=== PATIENT | male | born 1985 | race Caucasian/White ===

== ENCOUNTER 2019-11-29 16:07 | Emergency (ER) | payer OTHER ==
--- OUTSIDE RECORDS SUMMARY | 2019-11-29 16:09 | XMS REPORT | Continuity of Care Document ---
:1985 Author Organization [facility] t Address [address] [place] [address] [place] [id number] Care Team Providers Name Role Phone Doctor Unassigned, Name Attending Clinician Unavailable Chauncey Givens MD Attending Clinician Problems This patient has no known problems. Allergies, Adverse Reactions, Alerts This patient has no known allergies or adverse reactions. Medications This patient has no known medications. Procedures This patient has no known procedures. Encounters Start End Encounter Admission Attending Care Care Encounter Source Date/Time Date/Time Type Type Clinicians Facility Department ID 2019-10-15 2019-10-15 Orders Doctor JUNG [id number] 00:00:00 00:00:00 Only UnassignedJEAN CLAUDE [id number] [place] [id number] [id number] [id number] 2019-10-01 2019-10-01 TelemPRESTON Mcintosh [id number] 08:23:22 08:53:22 ne Visit Bijal Grossman Hamill [id number] [place] [id number] [facility] [phone] [place] 085 [facility] 2019-08-28 2019-08-28 Orders Doctor JUNG [id number] 00:00:00 00:00:00 Only UnassignedJEAN CLAUDE [id number] [place] [id number] [id number] 2019-08-06 2019-08-20 TelemPRESTON Mcintosh [id number] 08:28:45 15:08:39 ne Visit Bijal Huertas [id number] [place] [id number] [place] [phone] [facility] 085 [facility] 2019-08-20 2019-08-20 Orders Doctor JUNG [id number] 00:00:00 00:00:00 Only Unassigned, JEAN CLAUDE [id number] [place] [facility] [id number] [id number] Results This patient has no known results.
[2019-11-29 16:44] LABS: Absolute Lymphocytes (CBC) 3.1 K/uL (0.7-4.9); Basophils % 0.4 % (0-1.3); Hematocrit 43.6 % (39.6-49.0); MPV 7.6 fL (7.6-11.3); RBC Red Blood Cell Count 4.74 M/uL (4.33-5.43)
[2019-11-29] MEDS ORDERED: ASPIRIN EC 81 MG TAB PO ONE (16:45)
[2019-11-29] MEDS ORDERED: METOPROLOL TAR 25 MG TAB ONE (16:45)
[2019-11-29] MEDS ORDERED: NA CHLORIDE 0.9% 500 ML ONE (16:46)
[2019-11-29] MEDS ORDERED: NA CHLORIDE 0.9% 1,000 ML ONE (16:46)
[2019-11-29 16:51] LABS: ALT/SGPT 23 U/L (12-78); AST/SGOT 11 U/L (15-37); Albumin 4.2 g/dL (3.4-5.0); Alkaline Phosphatase 57 U/L (45-117); BUN Blood Urea Nitrogen 13 mg/dL (7-18); Bicarbonate 28 mmol/L (21-32); Bilirubin Direct 0.2 mg/dL (0-0.2); Bilirubin Total 1.1 mg/dL (0.2-1.0); Glucose Level 105 mg/dL (74-106); Magnesium 2.1 mg/dL (1.8-2.4); NT PRO-BNP 7 pg/mL (<125); Potassium 3.9 mmol/L (3.5-5.1); Protein, Total 7.5 g/dL (6.4-8.2); Sodium Level 142 mmol/L (136-145); Troponin (Emerg Dept Use Only) < 0.02 ng/mL (0.0-0.045)
--- NOTE | 2019-11-29 16:57 | ER ---
Nurse's Notes [facility] Name: Dante Sellers Age: 34 yrs Sex: Male : 1985 Arrival Date: 11/29/2019 Time: 16:14 Bed External Waiting Private MD: Diagnosis: Chest pain, unspecified;Ventricular tachycardia;Palpitations;Dyspnea Presentation: 11/28 16:18 Chief complaint: Patient states: has been having intermittent palpitations/flutters for sv about the past week. Had a Holter monitor placed and was told he was having episodes of Vtach, SVT, and ST depression. Pt reports that he gets SOB with activity as well. Coronavirus screen: Patient denies a cough. Patient denies shortness of breath or difficulty breathing. Patient denies measured and/or subjective temperature greater than 100.4F prior to today's visit. Patient denies travel on a cruise ship or to a country the [facility] currently lists as an affected area. Patient denies contact with known and/or suspected case of COVID-19. Proceed with normal triage. Ebola Screen: No symptoms or risks identified at this time. Risk Assessment: Do you want to hurt yourself or someone else? Patient reports no desire to harm self or others. Onset of symptoms was November 29, 2019. 16:18 Method Of Arrival: Ambulatory sv 16:18 Acuity: PERLITA 3 sv 16:20 Initial Sepsis Screen: Does the patient meet any 2 criteria? No. Patient's initial sv sepsis screen is negative. Does the patient have a suspected source of infection? No. Patient's initial sepsis screen is negative. 16:24 Care prior to arrival: Medication(s) given: ASA, 81 mg. vc Historical: - Allergies: 16:20 No Known Allergies; sv - Home Meds: 16:25 Lopressor 25 mg tab Oral tab 1 tab once daily [Active]; aspirin 81 mg Oral chew 1 tab vc once daily [Active]; - PMHx: 16:20 Migraines; sv - PSHx: 16:20 None; sv - Immunization history:: Adult Immunizations up to date, Flu vaccine is up to date. - Social history:: Smoking status: Patient denies any tobacco usage or history of. - Family history:: not pertinent. Screenin:20 Abuse screen: Denies threats or abuse. Nutritional screening: No deficits noted. vc Tuberculosis screening: No symptoms or risk factors identified. Fall Risk None identified. Assessment: 16:20 General: Appears in no apparent distress. uncomfortable, slender, Behavior is calm, vc cooperative, appropriate for age. Pain: Denies pain. Neuro: Level of Consciousness is awake, alert, obeys commands, Oriented to person, place, time, situation, Appropriate for age. Cardiovascular: Reports palpitations, Capillary refill < 3 seconds Patient's skin is warm and dry. Rhythm is sinus arrythmia. Respiratory: Airway is patent Respiratory effort is even, unlabored, Respiratory pattern is regular, symmetrical. GI: No signs and/or symptoms were reported involving the gastrointestinal system. : No signs and/or symptoms were reported regarding the genitourinary system. 16:23 Reassessment:. vc 17:00 Reassessment: Patient appears in no apparent distress at this time. Patient and/or vc family updated on plan of care and expected duration. Pain level reassessed. Patient is alert, oriented x 3, equal unlabored respirations, skin warm/dry/pink. Patient denies pain at this time. 17:00 Reassessment: Patient appears in no apparent distress at this time. Patient and/or vc family updated on plan of care and expected duration. Pain level reassessed. Patient is alert, oriented x 3, equal unlabored respirations, skin warm/dry/pink. Patient denies pain at this time. 18:00 Reassessment: Patient appears in no apparent distress at this time. Patient and/or vc family updated on plan of care and expected duration. Pain level reassessed. Patient is alert, oriented x 3, equal unlabored respirations, skin warm/dry/pink. Patient denies pain at this time. Vital Signs: 16:20 BP 139 / 88; Pulse 80; Resp 16; Pulse Ox 100% on R/A; sv 16:49 Weight 97.52 kg; Height 6 ft. 2 in. (187.96 cm); Pain 0/10; vc 17:00 BP 120 / 76; Pulse 67; Resp 16; Pulse Ox 99% on R/A; vc 18:00 BP 118 / 74; Pulse 61; Resp 15; Pulse Ox 99% on R/A; vc 16:49 Body Mass Index 27.60 (97.52 kg, 187.96 cm) vc ED Course: 16:14 Patient arrived in ED. fj1 16:18 Keli Farmer, RN is Primary Nurse. vc 16:18 Initial lab(s) drawn, by me, sent to lab. Inserted saline lock: 20 gauge in left jp3 antecubital area, using aseptic technique. Blood collected. 16:18 Patient maintains SpO2 saturation greater than 95% on room air. jp3 16:19 Triage completed. sv 16:20 Arm band placed on. sv 16:21 EKG done, by ED staff. sv 16:25 Waqas Head MD is Attending Physician. [facility] 16:26 Bed in low position. Call light in reach. Side rails up X 1. Verbal reassurance given. jp3 fish net stringer on. Pulse ox on. NIBP on. 16:26 TSH Sent. jp3 17:13 XRAY Chest (1 view) In Process Unspecified. EDMS 20:18 No provider procedures requiring assistance completed. Patient transferred, IV remains vc in place. Administered Medications: 16:48 Drug: NS 0.9% 1000 ml Route: IV; Rate: 125 ml/hr; Site: left antecubital; vc 18:00 Follow up: IV Status: Completed infusion; IV Intake: 1000ml vc 16:48 Drug: Aspirin 81 mg Route: PO; vc 20:17 Follow up: Response: No adverse reaction vc 16:48 Drug: Lopressor 25 mg Route: PO; vc 20:16 Follow up: Response: No adverse reaction vc 16:48 Drug: NS 0.9% 500 ml Route: IV; Rate: bolus; Site: left antecubital; vc 20:17 Follow up: IV Status: Completed infusion; IV Intake: 500ml vc Intake: 18:00 IV: 1000ml; Total: 1000ml. vc 20:17 IV: 500ml; Total: 1500ml. vc Outcome: 16:57 ER care complete, transfer ordered by . zain 20:19 Transferred by ground EMS to [facility]. vc 20:19 Condition: good 20:19 Instructed on the need for transfer. 20:42 Patient left the ED. sg Signatures: Dispatcher [employer] EDCassie Moralez RN RN Gopi Echeverria RN RN sg Anderson, Corey, MD MD cha Pisarski, Jacob jp3 Keli Farmer RN RN vc Sánchez, Noah fj1
--- NOTE | 2019-11-29 16:57 | EDPHYS ---
Physician Documentation [facility] Name: Dante Sellers Age: 34 yrs Sex: Male : 1985 Arrival Date: 11/29/2019 Time: 16:14 Bed External Waiting Private MD: ROSAURA Physician Waqas Head HPI: 11/28 16:45 This 34 yrs old Male presents to ER via Ambulatory with complaints of FOLLOW zain UP. 16:45 The patient has shortness of breath at rest, with light activity. Onset: The zain symptoms/episode began/occurred 3 day(s) ago. Duration: The symptoms are intermittent, with episodes lasting seconds at a time. The patient's shortness of breath has no apparent modifying factors. The patient or guardian reports chest pain that is located primarily in the anterior chest wall. The patient presents with a history of irregular heart beat, heart racing, heart skipping beats. Context: The symptoms occur with anxiety, with exercise, with light activity. Onset: The symptoms/episode began/occurred 1 week(s) ago. Duration: The patient or guardian reports multiple episodes, that wax and wane. Modifying factors: The symptoms are aggravated by anxiety, light activity, sitting up, The symptoms are alleviated by nothing. Historical: - Allergies: 16:20 No Known Allergies; sv - Home Meds: 16:25 Lopressor 25 mg tab Oral tab 1 tab once daily [Active]; aspirin 81 mg Oral chew 1 tab vc once daily [Active]; - PMHx: 16:20 Migraines; sv - PSHx: 16:20 None; sv - Immunization history:: Adult Immunizations up to date, Flu vaccine is up to date. - Social history:: Smoking status: Patient denies any tobacco usage or history of. - Family history:: not pertinent. ROS: 16:45 Constitutional: Negative for fever, chills, and weight loss, Eyes: Negative for injury, zain pain, redness, and discharge, ENT: Negative for injury, pain, and discharge, Neck: Negative for injury, pain, and swelling, Cardiovascular: Negative for chest pain, palpitations, and edema, Respiratory: Negative for shortness of breath, cough, wheezing, and pleuritic chest pain, Abdomen/GI: Negative for abdominal pain, nausea, vomiting, diarrhea, and constipation, Back: Negative for injury and pain, : Negative for injury, bleeding, discharge, and swelling, MS/Extremity: Negative for injury and deformity, Skin: Negative for injury, rash, and discoloration, Neuro: Negative for headache, weakness, numbness, tingling, and seizure, Psych: Negative for depression, anxiety, suicide ideation, homicidal ideation, and hallucinations, Allergy/Immunology: Negative for hives, rash, and allergies, Endocrine: Negative for neck swelling, polydipsia, polyuria, polyphagia, and marked weight changes, Hematologic/Lymphatic: Negative for swollen nodes, abnormal bleeding, and unusual bruising. 16:45 MS/extremity: Negative for acute changes, decreased range of motion, pain, swelling, tenderness. Exam: 16:45 Constitutional: This is a well developed, well nourished patient who is awake, alert, zain and in no acute distress. Head/Face: Normocephalic, atraumatic. Eyes: Pupils equal round and reactive to light, extra-ocular motions intact. Lids and lashes normal. Conjunctiva and sclera are non-icteric and not injected. Cornea within normal limits. Periorbital areas with no swelling, redness, or edema. ENT: Nares patent. No nasal discharge, no septal abnormalities noted. Tympanic membranes are normal and external auditory canals are clear. Oropharynx with no redness, swelling, or masses, exudates, or evidence of obstruction, uvula midline. Mucous membranes moist. Neck: Trachea midline, no thyromegaly or masses palpated, and no cervical lymphadenopathy. Supple, full range of motion without nuchal rigidity, or vertebral point tenderness. No Meningismus. Chest/axilla: Normal chest wall appearance and motion. Nontender with no deformity. No lesions are appreciated. Cardiovascular: Regular rate and rhythm with a normal S1 and S2. No gallops, murmurs, or rubs. Normal PMI, no JVD. No pulse deficits. Respiratory: Lungs have equal breath sounds bilaterally, clear to auscultation and percussion. No rales, rhonchi or wheezes noted. No increased work of breathing, no retractions or nasal flaring. Abdomen/GI: Soft, non-tender, with normal bowel sounds. No distension or tympany. No guarding or rebound. No evidence of tenderness throughout. Back: No spinal tenderness. No costovertebral tenderness. Full range of motion. Skin: Warm, dry with normal turgor. Normal color with no rashes, no lesions, and no evidence of cellulitis. MS/ Extremity: Pulses equal, no cyanosis. Neurovascular intact. Full, normal range of motion. Neuro: Awake and alert, GCS 15, oriented to person, place, time, and situation. Cranial nerves II-XII grossly intact. Motor strength 5/5 in all extremities. Sensory grossly intact. Cerebellar exam normal. Normal gait. Psych: Awake, alert, with orientation to person, place and time. Behavior, mood, and affect are within normal limits. 16:45 ECG was reviewed by the Attending Physician. Vital Signs: 16:20 BP 139 / 88; Pulse 80; Resp 16; Pulse Ox 100% on R/A; sv 16:49 Weight 97.52 kg; Height 6 ft. 2 in. (187.96 cm); Pain 0/10; vc 17:00 BP 120 / 76; Pulse 67; Resp 16; Pulse Ox 99% on R/A; vc 18:00 BP 118 / 74; Pulse 61; Resp 15; Pulse Ox 99% on R/A; vc 16:49 Body Mass Index 27.60 (97.52 kg, 187.96 cm) vc MDM: 16:25 Patient medically screened. zain 16:49 Differential diagnosis: Anxiety Reaction CHF exacerbation, abnormal EKG, anxiety, zain arrythmia, dehydration, mitral valve prolapse, myocarditis, pleurisy, pulmonary embolus, pulmonary edema, Pulmonary Embolism reactive airway disease, Unstable Angina. Data reviewed: vital signs, nurses notes, lab test result(s), EKG, radiologic studies, plain films. 16:50 Antibiotic administration: Not indicated. HEART Score: History: Slightly Suspicious zani (0), ECG: Normal (0), Age: < or = 45 years (0), Risk Factors: No Risk Factors Known (0), Troponin: < or = 1 x Normal Limit (0). The patient's Wells Deep Vein Thrombosis Score was calculated as follows: Total Score: 0. This patient was found to be at low risk for a deep vein thrombosis by using the Well's assessment criteria Total Score: 0-2 Pts- Low Risk. The patient's pulmonary embolism risk score was calculated as follows: Total Score: 0-2 points. This patient was found to be at low risk for a pulmonary embolism by using the Well's assessment criteria Total Score: 0-2 points. This patient was found to be at low risk for a pulmonary embolism by using the Well's assessment criteria. RICHARD Risk Score: TOTAL SCORE = 0. Immunization status:. Data interpreted: facilities operations technician: rate is 80 beats/min, rhythm is regular, Pulse oximetry: on room air is 100 %. Test interpretation: by ED physician or midlevel provider: ECG, plain radiologic studies. Physician consultation: shana carlson on the case, will transfer to [facility]. ED course: pt stable and aware of the transfer. 18:11 ED course: pt remains stable, awaiting transfer. zain 11/28 16:21 Order name: Basic Metabolic Panel; Complete Time: 17:04 vc 11/28 16:21 Order name: CBC with Diff; Complete Time: 17:04 vc 11/28 16:21 Order name: LFT's; Complete Time: 17:04 vc 11/28 16:21 Order name: Magnesium; Complete Time: 17:04 vc 11/28 16:21 Order name: NT PRO-BNP; Complete Time: 17:04 vc 11/28 16:21 Order name: PT-INR; Complete Time: 17:04 vc 11/28 16:21 Order name: Troponin (emerg Dept Use Only); Complete Time: 17:04 vc 11/28 16:21 Order name: XRAY Chest (1 view); Complete Time: 18:10 vc 11/28 16:21 Order name: EKG; Complete Time: 16:22 vc 11/28 16:25 Order name: TSH; Complete Time: 17:04 zain 11/28 16:21 Order name: Cardiac monitoring; Complete Time: 16:21 vc 11/28 16:21 Order name: EKG - Nurse/Tech; Complete Time: 16:21 vc 11/28 16:21 Order name: IV Saline Lock; Complete Time: 16:21 vc 11/28 16:21 Order name: Labs collected and sent; Complete Time: 16: vc 11/28 16:21 Order name: O2 Per Protocol; Complete Time: 16:22 vc 11/28 16:21 Order name: O2 Sat Monitoring; Complete Time: 16:22 vc EC:45 Rate is 78 beats/min. Rhythm is regular. QRS [place] is Normal. NE interval is normal. QRS zain interval is normal. QT interval is normal. No Q waves. T waves are Normal. No ST changes noted. Clinical impression: Normal ECG and No evidence of ischemia. Interpreted by me. Reviewed by me. Administered Medications: 16:48 Drug: NS 0.9% 1000 ml Route: IV; Rate: 125 ml/hr; Site: left antecubital; vc 18:00 Follow up: IV Status: Completed infusion; IV Intake: 1000ml vc 16:48 Drug: Aspirin 81 mg Route: PO; vc 20:17 Follow up: Response: No adverse reaction vc 16:48 Drug: Lopressor 25 mg Route: PO; vc 20:16 Follow up: Response: No adverse reaction vc 16:48 Drug: NS 0.9% 500 ml Route: IV; Rate: bolus; Site: left antecubital; vc 20:17 Follow up: IV Status: Completed infusion; IV Intake: 500ml vc Disposition: 11/29/19 16:57 Transfer ordered to [facility]. Diagnosis are Chest pain, unspecified, Ventricular tachycardia, Palpitations, Dyspnea. - Reason for transfer: Higher level of care. - Accepting physician is to [facility]. - Condition is Fair. - Problem is new. - Symptoms have improved. Signatures: Dispatcher [employer] EDMS Mehnaz Banuelos, COTTON PROGRAM TECHNICIAN-C COTTON PROGRAM TECHNICIAN-CkCassie Mata, RN Gopi Reed RN RN sg Anderson, Corey, MD MD cha Calcote, Vanessa, RN RN vc Corrections: (The following items were deleted from the chart) 20:42 16:57 11/29/2019 16:57 Transfer ordered to [facility]. Diagnosis is Chest pain, sg unspecified; Ventricular tachycardia; Palpitations; Dyspnea. Reason for transfer: Higher level of care. Accepting physician is to [facility]. Condition is Fair. Problem is new. Symptoms have improved. zain
--- NOTE | 2019-11-29 17:29 | RAD REPORT ---
EXAM DESCRIPTION: Alejandrina Single View11/29/2019 5:12 pm CLINICAL HISTORY: Chest pain COMPARISON: none FINDINGS: The lungs appear clear of acute infiltrate. The heart is normal size IMPRESSION: No acute abnormalities displayed
[2019-11-29 20:51] VITALS: O2SAT 99
[2019-11-29 20:52] VITALS: BP 118/74
== END 2019-11-29 20:42 | disposition short-term general hospital (02) ==
LOC: ER 16:07
DX: I47.2 Ventricular tachycardia (principal); R00.2 Palpitations; R06.00 Dyspnea, unspecified; Z79.82 Long term (current) use of aspirin
CPT/HCPCS: 96361; 93005; 85025; 80048; 36415; 83735; 85610; 80076; 84443; 84484; 83880; 71045; 96360; 99285; J7040; J7030